=== PATIENT | male | born 1985 | race Two or more races ===

== ENCOUNTER 2017-01-23 12:40 | Emergency (ER) | payer MEDICAID, OTHER ==
[~2017-01-23] VITALS: Ht 180.3 cm; Wt 90.0 kg
[~2017-01-23 12:40] MED LIST: TRAM50 PO; Z.0.NO CURRENT MEDS
[2017-01-23 12:43] VITALS: BP 122/77; PULSE 124; RESP 20; TEMP 102.7; O2SAT 98
--- NOTE | 2017-01-23 13:28 | PD ---
Physical Exam Time Seen by Provider: 13:26 Narrative 31 y/o male here with cough, h/a, myalgias, dizziness for 3 days. Fever for 2 days. Denies n/v/d but does endorse 30 minutes of abdominal pain. Vital signs noted. Seen at triage desk. Awaiting bed placement. Data Data Last Documented VS Vital Signs Date Time Temp Pulse Resp B/P Pulse Ox O2 Delivery O2 Flow Rate FiO2 01/23/17 12:43 102.7 124 20 122/77 98 Room Air [facility] Medical Record Reviewed: Yes Supervised Visit with YVETTE: Richard Alvarez January 23, 2017 13:28
[2017-01-23] MEDS ORDERED: SODIUM CHLORIDE 0.9% FLUSH 10 ML FLUSH IV FLUSH PRN (14:00)
[2017-01-23] MEDS ORDERED: SODIUM CHLOR 0.9% 1000 ML INJ 1,000 ML IV SCH (14:00)
--- NOTE | 2017-01-23 14:08 | PD ---
HPI Chief Complaint: Fever Time Seen by Provider: 14:03 Travel History International Travel<30 days: No Contact w/Intl Traveler<30days: No Traveled to known affect area: No History of Present Illness HPI 31-year-old male presents to the emergency department for evaluation of fever, body aches, cough, abdominal pain. Patient states he started with fever and body aches yesterday. He states he started with abdominal pain in the lower abdomen today. He last took TheraFlu at 4 AM. The patient reports history of migraines. He takes no prescribed medications. Patient denies any sore throat. No chest pain. Patient reports no previous surgeries. PFSH Past Medical History Medical History: Denies Significant Hx Tetanus Vaccination: > 5 Years Past Surgical History Surgical History: No Previous Surgery Social History Alcohol Use: No Tobacco Use: No Substance Use: No Allergies-Medications (Allergen,Severity, Reaction): Coded Allergies: No Known Allergies (Unverified , 01/23/17) Reported Meds & Prescriptions Reported Meds & Active Scripts Active No Active Prescriptions or Reported Medications Review of Systems Except as stated in HPI: all other systems reviewed are Neg Physical Exam Narrative GENERAL: Well-nourished, well-developed male patient, ambulatory. Fever of 102.7. SKIN: Focused skin assessment warm/dry. HEAD: Normocephalic. Atraumatic. ENT: Mucosa pink and moist. No erythema or exudates. No uvular edema. No uvular , palatal, or tonsillar deviation. Airway patent. Nasal turbinates appear normal without nasal blood, purulent drainage or septal hematoma. Bilateral tympanic membranes are clear without erythema or perforation. EYES: No scleral icterus. No injection or drainage. NECK: Supple, trachea midline. No JVD or lymphadenopathy. No nuchal rigidity. CARDIOVASCULAR: Regular rhythm without murmurs, gallops, or rubs. Patient is tachycardic heart rate in the 120s. RESPIRATORY: Breath sounds equal bilaterally. No accessory muscle use. Lungs sounds are clear to auscultation GASTROINTESTINAL: Abdomen soft and nondistended. Patient's tenderness over right lower and right upper quadrant as well as mild tenderness over the epigastric region. MUSCULOSKELETAL: No cyanosis, or edema. BACK: Nontender without obvious deformity. No CVA tenderness. Data Data Last Documented VS Vital Signs Date Time Temp Pulse Resp B/P Pulse Ox O2 Delivery O2 Flow Rate FiO2 01/23/17 15:35 99.2 77 16 100 01/23/17 12:43 122/77 Room Air Orders Complete Blood Count With Diff (01/23/17 14:00) Comprehensive Metabolic Panel (01/23/17 14:00) Lipase (01/23/17 14:00) Ct Abd/Pel W Iv Contrast(Rout) (01/23/17 14:00) Iv Access Insert/Monitor (01/23/17 14:00) Ecg Monitoring (01/23/17 14:00) Oximetry (01/23/17 14:00) Sodium Chlor 0.9% 1000 Ml Inj (Ns 1000 M (01/23/17 14:00) Sodium Chloride 0.9% Flush (Ns Flush) (01/23/17 14:00) Influenzae A/B Antigen (01/23/17 14:00) Chest, Single Ap (01/23/17 ) Acetaminophen (Tylenol) (01/23/17 14:15) Iohexol 350 Inj (Omnipaque 350 Inj) (01/23/17 14:54) Labs Laboratory Tests Test 01/23/17 14:00 White Blood Count 7.5 TH/MM3 Red Blood Count 5.48 MIL/MM3 Hemoglobin 16.3 GM/DL Hematocrit 47.8 % Mean Corpuscular Volume 87.3 FL Mean Corpuscular Hemoglobin 29.8 PG Mean Corpuscular Hemoglobin 34.1 % Concent Red Cell Distribution Width 13.1 % Platelet Count 183 TH/MM3 Mean Platelet Volume 9.7 FL Neutrophils (%) (Auto) 77.3 % Lymphocytes (%) (Auto) 10.7 % Monocytes (%) (Auto) 11.2 % Eosinophils (%) (Auto) 0.3 % Basophils (%) (Auto) 0.5 % Neutrophils # (Auto) 5.8 TH/MM3 Lymphocytes # (Auto) 0.8 TH/MM3 Monocytes # (Auto) 0.8 TH/MM3 Eosinophils # (Auto) 0.0 TH/MM3 Basophils # (Auto) 0.0 TH/MM3 CBC Comment DIFF FINAL Differential Comment Sodium Level 140 MEQ/L Potassium Level 3.5 MEQ/L Chloride Level 104 MEQ/L Carbon Dioxide Level 29.6 MEQ/L Anion Gap 6 MEQ/L Blood Urea Nitrogen 9 MG/DL Creatinine 1.18 MG/DL Estimat Glomerular Filtration 72 ML/MIN Rate Random Glucose 104 MG/DL Calcium Level 9.2 MG/DL Total Bilirubin 1.1 MG/DL Aspartate Amino Transf 13 U/L (AST/SGOT) Alanine Aminotransferase 14 U/L (ALT/SGPT) Alkaline Phosphatase 59 U/L Total Protein 7.8 GM/DL Albumin 3.9 GM/DL Lipase 69 U/L MDM Medical Decision Making Medical Screen Exam Complete: Yes Emergency Medical Condition: Yes Medical Record Reviewed: Yes Interpretation(s) Last Impressions Chest X-Ray 01/23/17 0000 Signed Impressions: Service Date/Time: Monday, January 23, 2017 14:26 - CONCLUSION: Bibasilar patchy infiltrates. Patrick Roberts MD CT abdomen/pelvis - CONCLUSION: Mild bibasilar parenchymal lung atelectasis. No acute CT findings in the abdomen or pelvis. Differential Diagnosis Influenza versus viral syndrome versus pneumonia versus appendicitis versus diverticulitis versus pancreatitis Narrative Course 31-year-old male presents to the emergency department for evaluation of fever, flulike symptoms, abdominal pain. CBC, CMP, lipase, and influenza are ordered and pending. Chest x-ray and CT abdomen/pelvis with IV contrast are ordered and pending. Patient is given Tylenol 650 mg by mouth normal saline 1 L IV bolus. CBC shows normal WBC of 7.5, elevated neutrophils 77.3, monocytes 11.2. CMP shows slightly elevated bilirubin of 1.1. Lipase is 69. Influenza is negative. Chest x-ray shows bibasilar patchy infiltrates.. CT abdomen/pelvis shows mild bibasilar parenchymal lung atelectasis. No acute CT findings in the abdomen or pelvis. Chest x-ray shows bibasilar infiltrates, however, CT abdomen/pelvis shows atelectasis, no infiltrates. Patient appears well on exam. Exam is consistent with viral syndrome. He is instructed to take Tylenol/Motrin for fever. He is instructed to rest and follow up with his primary care physician. Patient is to return for any acute, worsening of symptoms. I discussed the case and findings with my attending physician, Dr. Magaña, who agrees on plan and disposition. The patient was discharged in stable condition with instructions, including return instructions and follow up instructions. Diagnosis Primary Impression: Viral syndrome Referrals: Primary Care Physician 2 days Patient Instructions: General Instructions, Viral Syndrome (ED) Departure Forms: Tests/Procedures, Work Release Enter return to work date: January 26, 2017 Additional Instructions: Rest. Drink plenty of fluids. [id number] Tylenol every 4 hours as needed for fever, bodyaches. Over-the -counter ibuprofen every 6-8 hours as needed for fever, body aches. Follow-up with your primary care physician. Return to the emergency department for any acute worsening of symptoms. Med/Other Pt SpecificInfo: No Change to Meds Scripts No Active Prescriptions or Reported Meds Disposition: 01 DISCHARGE HOME Condition: Stable Anika Sarkar January 23, 2017 14:08
[2017-01-23 14:09] VITALS: O2SAT 100
[2017-01-23] MEDS ORDERED: ACETAMINOPHEN 325 MG TAB PO ONE (14:15)
[2017-01-23 14:27] LABS: AUTOMATED NEUTROPHIL # 5.8 TH/MM3 (1.8-7.7); BASOPHIL % 0.5 % (0.0-2.0); EOSINOPHIL % 0.3 % (0.0-4.0); HEMATOCRIT 47.8 % (39.0-51.0); HEMO FLAGS DIFF FINAL; LYMPH % 10.7 % (9.0-44.0); LYMPHOCYTE # 0.8 TH/MM3 (1.0-4.8); MEAN CELL VOLUME 87.3 FL (80.0-100.0); MEAN CORPUSCULAR HEMOGLOBIN 29.8 PG (27.0-34.0); MEAN CORPUSCULAR HGB CONC 34.1 % (32.0-36.0); MONO % 11.2 % (0.0-8.0); NEUT % 77.3 % (16.0-70.0); PLATELET COUNT 183 TH/MM3 (150-450); RED BLOOD COUNT 5.48 MIL/MM3 (4.50-5.90); RED CELL DISTRIBUTION WIDTH 13.1 % (11.6-17.2); WHITE BLOOD COUNT 7.5 TH/MM3 (4.0-11.0)
[2017-01-23 14:43] LABS: ANION GAP 6 MEQ/L (5-15); AST (GOT) 13 U/L (15-37); BICARBONATE 29.6 MEQ/L (21.0-32.0); BLOOD UREA NITROGEN 9 MG/DL (7-18); CHLORIDE 104 MEQ/L (98-107); GLOMERULAR FILTRATION RATE 72 ML/MIN (>89); POTASSIUM 3.5 MEQ/L (3.5-5.1); SODIUM (NA) 140 MEQ/L (136-145)
--- NOTE | 2017-01-23 14:44 | RADRPT ---
EXAM DATE/TIME: 01/23/2017 14:26 [facility] COMPARISON: No previous studies available for comparison. INDICATIONS : Short of breath, chest pain, cough, cold and flu symptoms for 2 days MEDICAL HISTORY : None. SURGICAL HISTORY : None. ENCOUNTER: Initial ACUITY: 2 days PAIN SCORE: 5/10 LOCATION: Bilateral chest FINDINGS: A single view of the chest demonstrates bibasilar patchy densities. Heart normal in size. No pleural effusions. Osseous structures are intact. CONCLUSION: Bibasilar patchy infiltrates. Patrick Roberts MD on January 23, 2017 at 14:41 Board Certified Radiologist. This report was verified electronically.
[2017-01-23 14:51] LABS: ALKALINE PHOSPHATASE 59 U/L (45-117); ALT (GPT) 14 U/L (12-78); TOTAL BILIRUBIN ADULT 1.1 MG/DL (0.2-1.0)
[2017-01-23] MEDS ORDERED: IOHEXOL 350 MG/ML 10 ML VIAL (for RAD DIAG) IV ONE (14:54)
--- NOTE | 2017-01-23 15:29 | RADRPT ---
EXAM DATE/TIME: 01/23/2017 14:53 [facility] COMPARISON: No previous studies available for comparison. INDICATIONS : Right lower abdomen pain for three days. IV CONTRAST: 87 cc Omnipaque 350 (iohexol) IV ORAL CONTRAST: No oral contrast ingested. RADIATION DOSE: 10.33 CTDIvol (mGy) MEDICAL HISTORY : None SURGICAL HISTORY : None. ENCOUNTER: Initial ACUITY: 3 days PAIN SCALE: 7/10 LOCATION: Right lower quadrant TECHNIQUE: Volumetric scanning of the abdomen and pelvis was performed. Using automated exposure control and ad justment of the mA and/or kV according to patient size, radiation dose was kept as low as reasonably achievable to obtain optimal diagnostic quality images. FINDINGS: LOWER LUNGS: Bibasilar atelectasis. LIVER: Homogeneous density without lesion. There is no dilation of the biliary tree. No calcified gallston es. SPLEEN: Normal size without lesion. PANCREAS: Within normal limits. KIDNEYS: Normal in size and shape. There is no mass, stone or hydronephrosis. ADRENAL GLANDS: Within normal limits. VASCULAR: There is no aortic aneurysm. BOWEL/MESENTERY: The stomach, small bowel, and colon demonstrate no acute abnormality. There is no free intraperitone al air or fluid. The appendix is seen and appears normal. ABDOMINAL WALL: Within normal limits. RETROPERITONEUM: There is no lymphadenopathy. BLADDER: No wall thickening or mass. REPRODUCTIVE: Within normal limits. INGUINAL: There is no lymphadenopathy or hernia. MUSCULOSKELETAL: Within normal limits for patient age. CONCLUSION: Mild bibasilar parenchymal lung atelectasis. No acute CT findings in the abdomen or pelvis. Дмитрий Johnson MD on January 23, 2017 at 15:22 Board Certified Radiologist. This report was verified electronically.
[2017-01-23 15:35] VITALS: PULSE 77; RESP 16; TEMP 99.2; O2SAT 100
== END 2017-01-23 17:15 | disposition home or self-care (01) ==
LOC: NEPC 12:40
DX: B34.9 Viral infection, unspecified (principal); R10.30 Lower abdominal pain, unspecified; J98.11 Atelectasis; R07.9 Chest pain, unspecified; R05 Cough; R06.02 Shortness of breath
CPT/HCPCS: 71010; 74177; 80053; 83690; 85025; 87804; 99284; J7030; Q9967

== ENCOUNTER 2017-03-20 20:45 | Emergency (ER) | payer MEDICAID ==
[~2017-03-20] VITALS: Ht 180.3 cm; Wt 92.0 kg
[2017-03-20 21:06] VITALS: BP 109/69; PULSE 67; RESP 18; TEMP 98.4; O2SAT 98
[2017-03-20] MEDS ORDERED: ACYC800T PO (21:55)
[2017-03-20] MEDS ORDERED: PRED20 PO (21:55)
--- NOTE | 2017-03-20 21:55 | PD ---
HPI Chief Complaint: Skin Problem Time Seen by Provider: 21:30 Travel History International Travel<30 days: No Contact w/Intl Traveler<30days: No Traveled to known affect area: No History of Present Illness HPI 31-year-old male presents emergency department for evaluation of a painful rash on his back 2 days. Patient reports he developed right-sided back pain " couple of days" ago. He then noticed a blistering type rash on the back today. Patient denies fever, chills, headache, chest pain, abdominal pain, nausea or vomiting. He reports the pain is localized at the site of the rash extending into the lateral aspect of his torso. He reports the pain is constant, no exacerbating or alleviating factors, severity 3 out of 10. Patient denies any significant past medical history. No allergies to medications. PFSH Past Medical History Medical History: Denies Significant Hx Diminished Hearing: No Tetanus Vaccination: Unknown Influenza Vaccination: No ?: Not Past Surgical History Surgical History: No Previous Surgery Other Surgery: Yes Social History Alcohol Use: No Tobacco Use: No Substance Use: No Allergies-Medications (Allergen,Severity, Reaction): Coded Allergies: No Known Allergies (Unverified , 03/20/17) Reported Meds & Prescriptions Reported Meds & Active Scripts Active Prednisone 20 Mg Tab 40 Mg PO DAILY Take 40 mg (2 tablets) daily for 5 days Acyclovir 800 Mg Tab 800 Mg PO 5 TIMES A DAY Review of Systems Except as stated in HPI: all other systems reviewed are Neg Physical Exam Narrative GENERAL: Well-nourished, well-developed patient. SKIN: Focused skin assessment warm/dry. HEAD: Normocephalic. EYES: No scleral icterus. No injection or drainage. NECK: Supple, trachea midline. No JVD or lymphadenopathy. CARDIOVASCULAR: Regular rate and rhythm without murmurs, gallops, or rubs. RESPIRATORY: Breath sounds equal bilaterally. No accessory muscle use. GASTROINTESTINAL: Abdomen soft, non-tender, nondistended. MUSCULOSKELETAL: No cyanosis, or edema. BACK: without obvious deformity. No CVA tenderness. Erythematous vesicular clustered like rash right posterior thorax. Data Data Last Documented VS Vital Signs Date Time Temp Pulse Resp B/P Pulse Ox O2 Delivery O2 Flow Rate FiO2 03/20/17 21:06 98.4 67 18 109/69 98 MDM Medical Decision Making Medical Screen Exam Complete: Yes Emergency Medical Condition: Yes Differential Diagnosis Herpes zoster, contact dermatitis, atopic dermatitis Narrative Course 31-year-old male with a painful pruritic rash 2 days. The rash is consistent with herpes zoster. Diagnosis Primary Impression: Herpes zoster Qualified Code: B02.9 - Herpes zoster without complication Referrals: Primary Care Physician Scripts Acetaminophen-Codeine (Tylenol-Codeine #3)300-30 mg Tab1 Tab PO Q4H PRN (PAIN) # 12 TAB Ref 0 Prov:Fatuma Harris 03/20/17 Prednisone 20 Mg Tab40 Mg PO DAILY #10 TAB Ref 0 Take 40 mg (2 tablets) daily for 5 days Prov:Fatuma Harris 03/20/17 Acyclovir 800 Mg Qak413 Mg PO 5 TIMES A DAY #35 TAB Ref 0 Prov:Fatuma Harris 03/20/17 Disposition: 01 DISCHARGE HOME Condition: Stable Fatuma Harirs Mar 20, 2017 21:55
[2017-03-20] MEDS ORDERED: TYLETAB34 PO ×2 (22:02→22:03)
== END 2017-03-20 22:06 | disposition home or self-care (01) ==
LOC: PHEFT 20:45
DX: B02.9 Zoster without complications (principal)
CPT/HCPCS: 99284